=== PATIENT | female | born 1960 | race Caucasian/White ===

== ENCOUNTER → 2017-05-27 16:23 | Outpatient (CLI) | payer BC, SELFPAY | PROVIDERS: Visit Provider Otolaryngology Otolaryngology/Facial Plastic Surgery | DX: J34.89 Other specified disorders of nose and nasal sinuses (principal) | CPT/HCPCS: 87070; 87077; 87186; 87205 ==

== ENCOUNTER → 2020-08-12 13:46 | Outpatient (CLI) | payer BC, SELFPAY ==
[2020-08-12 09:23] VITALS: BMI 33.5
== END ==
PROVIDERS: PCP Internal Medicine; Referring Provider Nurse Practitioner Women's Health; Visit Provider Nurse Practitioner Women's Health
DX: N95.2 Postmenopausal atrophic vaginitis (principal)
CPT/HCPCS: 87070; 87205

== ENCOUNTER → 2022-03-05 | Outpatient (CLI) | payer BC, SELFPAY ==
--- NOTE | 2022-03-05 | BRBX_PTH ---
PATIENT: MILE BRAGA LOC: [facility] U#:[id number] AGE/SX: 61/F ROOM: RE03/05/[address]: Dr. Alvaro An MD : 1960 BED: DIS: 03/05/2022 SPEC #: [id number] RECD: 03/05/22 13:40 STATUS: BUCK REQ #: [id number] EMILY: 03/05/22 00:[address]: Alvaro An DEPT: SURGICAL PATHOLOGY RECD BY: Reza Pope ENTERED: 03/08/22 09:33 SP TYPE: BREAST BX OTHR DR: Dary Casillas MD Tissues: Right breast, NOS Procedures: Surgery Specimen Level IV HEADER OPERATION: Right breast, stereo needle, core biopsy PRE-OP DIAGNOSIS: Micro calcs, right breast upper inner quadrant TISSUE SUBMITTED: Right breast stereo needle, core biopsy MICROSCOPIC DIAGNOSIS Right breast stereo needle, core biopsy: Hyalinized fibroadenoma with focal calcification. Negative for atypia or malignancy. /SJ 03/09/22 COMMENT Correlation with clinical, radiologic findings and appropriate follow up are necessary. MICROSCOPIC DESCRIPTION Slides are reviewed. GROSS DESCRIPTION Received is one container labeled with the patient name and designated right breast. The specimen consists of multiple elongated fragments of choudhary yellow fibroadipose tissue that in aggregate measure 7.5 x 3.0 x 0.3 cm. The specimen is totally submitted in one cassette. / PAUL:zoe 03/08/22 TC:5 CPT: 74401
--- NOTE | 2022-03-05 13:17 | HP.PCM_ITS ---
History and Physical Date of Admission: 03/05/22 HISTORY AND PHYSICAL - BREAST COMPLAINT ? Tiffanie Bond 1960 ? ? REFERRING PHYSICIAN: Viv Pérez APRN.SILVERLIGHT DEVELOPER ? CHIEF COMPLAINT: Mammographic microcalcification found on diagnostic imaging of breast (primary encounter diagnosis) ? HPI: The patient is a 61 year old female with a complaint of an abnormal mammogram. The patient had a mammogram with ultrasound which demonstrated : IMPRESSION: SUSPICIOUS OF MALIGNANCY The heterogeneous calcification in the right breast upper inner aspect posterior depth is suspicious of malignancy. ?A stereotactic biopsy and surgical consult are recommended. The grouped fine heterogeneous calcifications in the left breast upper inner aspect middle depth are probably benign. ?A follow-up diagnostic mammogram in 6 months is recommended. The grouped fine heterogeneous calcifications in the left breast posterior depth upper region seen on the mediolateral oblique view only are probably benign. ?A follow-up diagnostic mammogram in 6 months is recommended. ? ? The patient denies a history of breast masses. She does perform a self breast exam routinely. She notes no skin changes. She denies nipple discharge. She notes no axillary masses. She notes no family history of breast problems. She notes no significant breast trauma or breast difficulties in the past. ? The patient is being seen by me today at the request of Dr. Pérez for my opinion and advice regarding Mammographic microcalcification found on diagnostic imaging of breast (primary encounter diagnosis). ? PAST MEDICAL HISTORY PAST MEDICAL HISTORY Diagnosis Date ? Bladder infection, chronic ? ? DVT (deep venous thrombosis) ([facility]) 09/26/09 ? calf - negative hypercoagulable work up by vascular - off coumadin since 2009 ? Fibroids ? ? Hydrosalpinx ? ? Mammogram abnormal 02/01 ? biopsy, calcium ? Meniere disease ? ? Chronic Hearing Loss/ takes diazepam ? Metrorrhagia ? ? Novasure Ablation in 2006/ ? Obesity ? ? Sebaceous cyst ? ? back ? Type II or unspecified type diabetes mellitus without mention of complication, not stated as uncontrolled ? ? ? PAST SURGICAL HISTORY PAST SURGICAL HISTORY Procedure Laterality Date ? ANAL SPHINTEROTOMY ? 1998 ? damaged during hemorrhoid sx, had it clipped ? HEMORRHOID, RUBBER BAND LIGATION ? 1998 ? LAPS W/VAG HYSTERECT 250 GM/&RMVL TUBE&/OVARIES ? 06/10/2011 ? Single-port laparoscopic-assisted vaginal hysterectomy and cystoscopy ? PAST SURGICAL HISTORY OF ? 2006 ? novasure ablation ? PAST SURGICAL HISTORY OF ? April 2009 ? Scope to Bladder ? PAST SURGICAL HISTORY OF ? ? ? back skin removal- benign ? PAST SURGICAL HISTORY OF ? sigmoidoscopy about ten years ago- normal results ? PAST SURGICAL HISTORY OF ? 06/20/2009 ? Laparoscopic bilateral salpingectomy. ? PAST SURGICAL HISTORY OF ? 02/22/12 ? hernia repair with mesh ? STEREO LOC FOR CORE BRST BX LT ? 02-20-09 ? left ? ? ? CURRENT MEDICATIONS Current Outpatient Medications Medication Sig Dispense Refill ? diazePAM (VALIUM) 2 mg tablet Take 1 tablet by mouth twice daily as needed (vertigo) for up to 30 days. 40 tablet 0 ? metFORMIN (GLUCOPHAGE) 500 mg tablet Take 2 tablets by mouth twice daily with meals. 360 tablet 3 ? spironolactone (ALDACTONE) 25 mg tablet Take 1 tablet by mouth once daily. 90 tablet 3 ? ramipril (ALTACE) 2.5 mg capsule Take 1 capsule by mouth once daily. 90 capsule 3 ? nitrofurantoin (MACRODANTIN) 100 mg capsule Take 1 capsule by mouth once daily. As directed for UTI prevention or treatment 30 capsule 1 ? semaglutide (OZEMPIC) 0.25 mg or 0.5 mg(2 mg/1.5 mL) pen injector Inject 0.5 mg subcutaneously one time a week. 4.5 mL 3 ? glimepiride (AMARYL) 4 mg tablet Take 1 tablet by mouth twice daily with meals. 180 tablet 3 ? blood sugar diagnostic (ONETOUCH VERIO TEST STRIPS) test strip Check 1 to 2 times daily as directed. 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 alcohol swabs Use to prep injection area for Ozempic. 100 Each 5 ? fluconazole (DIFLUCAN) 200 mg tablet Take one then repeat after 3 to 5 days as directed. Treat recurrences as needed 2 tablet 5 ? Biotin 10,000 mcg cap Take 1 capsule by mouth once daily. ? ? ? multivit with minerals/lutein (MULTIVITAMIN 50 PLUS ORAL) Take 1 tablet by mouth once daily. ? ? ? fluticasone propionate (FLONASE ALLERGY RELIEF NASAL) Use 1 Avella in the nose once daily. As needed ? ? ? Flaxseed Oil 1,000 mg cap Take 1,000 mg by mouth once daily. ? ? ? Lancets lancets Test blood sugar(s) 1 times daily. Dx: Type 2 DM - Uncontrolled E11.65 Insulin: No 100 Each 3 ? Blood-Glucose Meter (ONETOUCH VERIO IQ METER) [facility] Check sugars as instructed. DM E11.49, E11.65 1 Each 0 ? estradiol (ESTRACE) 0.01 % (0.1 mg/gram) vaginal cream (Patient not taking: Reported on 02/19/2022) ? ? ? No current facility-administered medications for this visit. ? ? ALLERGIES: Adhesive Tape (Rosins), Bactrim [Sulfamethoxazole-Trimethoprim], Invokana [Canagliflozin], Lipitor [Atorvastatin], Meloxicam, Paroxetine, and Vicodin [Hydrocodone-Acetaminophen] ? PERSONAL HISTORY: SOCIAL HISTORY Social History ? Tobacco Use ? Smoking status: Never ? Smokeless tobacco: Never Vaping Use ? Vaping Use: Never used Substance Use Topics ? Alcohol use: No ? Drug use: No ? FAMILY HISTORY: FAMILY HISTORY FAMILY HISTORY Problem Relation Age of Onset ? Alzheimer's Disease Mother ? ? Cancer Father ? ? MM 62 ? Hypertension Brother ? ? Thyroid Cancer Brother ? ? treated with surgery and radioactive iodine ? Diabetes Maternal Grandfather ? ? Cancer Paternal Grandmother ? ? breast and skin/ lived to be 101 yrs of age ? Breast Cancer Paternal Grandmother ? ? postmenopausal diadnosis ? Melanoma Paternal Grandmother ? ? Breast Cancer Maternal Aunt ? ? in 60s ? other (no history) Other ? ? colon, ovarian ? Diabetes Other ? ? two Aunts on maternal side ? ? REVIEW OF SYMPTOMS: The review of systems data was entered by the nurse and reviewed by me ? There are no exam notes on file for this visit. PHYSICAL EXAMINATION: ? General: The patient is 61 year old female, well nourished, well hydrated in no acute distress. The patient is oriented to time, place, and person. ? VITALS: Blood pressure 118/80, pulse 100, temperature 36.6 ?C (97.9 ?F), height 165.1 cm (5' 5), weight 82.8 kg (182 lb 9.6 oz), last menstrual period 07/27/2006, SpO2 98 %. Body mass index is 30.39 kg/m?. ? HEENT: Normal cephalic, ataumatic, pupils are equally round, sclera are ani cteric, mucous membranes are moist, oropharynx is clear. Neck has no masses, asymmetry or lymphadenopathy. Thyroid is unremarkable. ? Respiratory: Clear to auscultation and percussion. Normal respiratory excursion and pattern. ? Cardiac: Examination is regular rate and rhythm. ? Abdominal exam: Soft, nontender, with no palpable masses. No hepatosplenomegaly. No palpable hernias. ? Rectal exam: exam deferred Extremities: no clubbing, cyanosis or edema. No adenopathy. ? Breast: Visual inspection reveals no retractions, nipple inversion, or skin changes. Palpation of the right breast reveals no dominant or suspicious masses. Palpation of the left breast reveals no dominant or suspicious masses. Axillary exam demonstrates no suspicious masses in either the left or right axilla. There is no nipple discharge expressed from either the left or right breast. ? LABORATORY VALUES: As Noted ? RADIOLOGIC STUDIES: As Noted ? Assessment IMPRESSION: Mammographic microcalcification found on diagnostic imaging of breast (primary encounter diagnosis) ? PLAN: I plan to perform a stereotactic biopsy of the right breast. The planned surgical procedure was discussed extensively with the patient. The risks, benefits, anticipated outcomes and possible complications were mentioned. My staff has also explained the procedure in understandable terms and the patient was given the option to take printed material concerning the planned procedure. The patient had the opportunity to ask questions concerning the planned procedure. The patient freely consents to the planned procedure. ? ? Diagnoses: (R92.0) Mammographic microcalcification found on diagnostic imaging of breast (primary encounter diagnosis) ? My findings have been communicated to Dr. Pérez via shared medical record. This note will be forwarded to Dr. Dary Casillas MD. ? Return to Clinic: The patient is instructed to follow-up with me 1 week post operatively. ? COVID (Procedure Consent) Procedure Criteria ? Procedure Criteria: Yes Elective The surgeon/proceduralist and patient have discussed in detail the risk of exposure to and/or potential harm posed by the COVID-19 virus with having a surgery/procedure at this time versus the risk of? delaying the surgery/procedure. It is not possible to know either the risk of delaying the surgery or procedure or chance of getting an infection with perfect accuracy, but a joint decision was made between the patient and the surgeon/proceduralist ?to proceed at this time with the scheduled surgery/procedure as indicated on the consent form. ? ? Alvaro An III, MD I have examined the patient and the H&P has been reviewed. There are no clinical changes since date of exam.
--- NOTE | 2022-03-05 13:18 | PCM.OPRPT ---
Problems Associated Problem List Diagnoses (1) Microcalcifications of the breast: Report of Operation Date of Procedure: 03/05/22 Pre-Operative Diagnosis: Microcalcifications right breast Post-Operative Diagnosis: Same Surgery/Procedure Performed:: Right stereotactic breast biopsy Surgeon: Alvaro An steam table attendant: None Type of Anesthesia: Local Specimen's removed: Right breast tissue Estimated Blood Loss (mL): < 20 cc Description of Procedure: Patient was brought into the mammography unit. She was placed in the prone position on the fissure table. A medial to lateral view was obtained. Microcalcifications were identified. Posterior -15 degree views were obtained. I targeted on the microcalcifications. I prepped the breast with Betadine. I injected 1% lidocaine plain. A skin delfino was made. Placed a needle in the prefire position took 2 more stereo views. The area was adequately targeted. Fired the needle. 360 degrees circumferential biopsies were obtained. X-ray my specimen. Microcalcifications were identified. Backed the needle off 7 mm. Placed a barbell clip into the biopsy cavity. Needle was removed. Stereo images showed the clip to be in good placement. Patient was taken out of the machine Steri-Strips were applied sterile dressings were applied. Standard mammograms were obtained. Admit VTE Documentation VTE Present on Admission: No VTE Mechan Device Prophylaxis: None VTE Pharm Prophylaxis ordered?: No Reason prophylaxis not ordered:: Treatment Not Indicated
== END | disposition home or self-care (01) ==
LOC: BIRAD 12:46
PROVIDERS: PCP Internal Medicine; Visit Provider Surgery
DX: R92.0 Mammographic microcalcification found on diagnostic imaging of breast (principal)
CPT/HCPCS: 19081; 88305; J7050

== ENCOUNTER 2023-03-16 08:30 | Outpatient (RCR) | payer BC, SELFPAY ==
--- NOTE | 2023-01-20 12:41 | HP.PTEVAL ---
Patient's Visit Information Visit Information Visit Information: MILE BRAGA is a 62 year old F referred to Physical Therapy by Dr. Selma Hays MD with a diagnosis of OVER ACTIVE BLADDER. Date of Evaluation: 01/19/23 Physical Therapist: Kenisha Flor, PT, Cert MDT Visit Plan Frequency: 1x/Week Duration: 2-4 Months Plan: CHECK AUTH PF THERAPY FOR STRENGTHENING AND ENDURANCE TRAINING. URINARY URGE AND FREQUENCY EDUCATION. HEALTHY BLADDER HABIT EDUCATION. TRAINING IN COORDINATION OF PELVIC FLOOR MUSCULATURE WITH HIP AND CORE (TRANSVERSE ABDOMINUS) MUSCULATURE. CORE STRENGTHENING. FARHAN LE ROM, STRETCHING AND STRENGTHENING. TRAINING IN ABDOMINAL CAVITY PRESSURE MGMT WITH ADL'S. Subjective Subjective: Work/Leisure: HOUSEWIFE. WALKING AND GARDENING. NO PREGNANCIES. Disability: NO Present symptoms: IT FEELS LIKE I HAVE TO URINATE ALL THE TIME . WHEN I STAND UP IT FEELS LIKE MY INSIDES ARE GOING TO FALL OUT . Present since: ABOUT 6 MONTHS Pain Scale: PATIENT DENIES PAIN. Is it getting better, worse or staying the same: STAYING THE SAME Commenced as a result of: NO APPARENT REASON Symptoms at onset: SAW A BULGE IN VAGINAL AREA Worse: STANDING UP, HAVING BOWEL MVMT, LIFTING Better: LYING DOWN Disturbed sleep: GETTING UP ONCE AT NIGHT TO URINATE Previous history/Previous treatment: HYSTERECTOMY >8 YEARS AGO, TUBAL . NO H/O PELVIC FLOOR THERAPY. NO BLADDER SLING SX. DX'D WITH CYSTITIS ABOUT YEAR AGO. HAS BEEN TRYING PELVIC FLOOR EX'S ON HER OWN FOR ABOUT 6 WKS THAT SHE LEARNED FROM HER [id number]. Treatment this episode: NONE. PT REFERRAL. Coughing/sneezing/straining: SLIGHTLY Gait: NORMAL How long can you delay the need to urinate: 6-7 MINUTES Prolapse (Falling out feeling): YES Frequency of Urination: APPROX EVERY 2 HRS Ability to stop urine flow: YES Ability to initiate urine stream: YES Dyspareunia: MILD Bowel Incontinence: NO Accidents: NO Unexplained weight loss: NO Imaging: TESTING SHOWING NORMAL BLADDER EMPTYING PER PATIENT REPORT. OTHER: PATIENT IS HARD OF HEARING AND WEARS HEARING AIDS. PMH FROM [facility] EMR: H/O blood clots Meniere disease Type 2 diabetes mellitus H/O breast biopsy H/O laparoscopy History of knee replacement - R History of total vaginal hysterectomy Objective Objective: Sitting/Standing Posture: FAIR. REDUCED LUMBAR LORDOSIS. NO RELEVANT LATERAL SHIFT. Other Observations: INDEP GAIT AND TRANSFERS Sensory deficit: FARHAN LE LIGHT TOUCH SENSATION GROSSLY INTACT AND SYMMETRICAL ROM deficit: FARHAN HS, HIP ADDUCTOR, HIP ER AND GASTROC-SOLEUS TIGHTNESS. Motor deficit: FARHAN LE'S GROSSLY 5/5 WITH MMT'ING EXCEPT HIPS 4/5 Dural Signs: NEGATIVE FARHAN LES'. Lumbar mvmt loss: flex - NIL ext - FANNY R SG - MOD L SG - MOD PATIENT DENIES PAIN WITH LUMBAR ROM TESTING. Core strength: POOR Palpation: MANUAL INTERNAL VAGINAL TESTING OF PELVIC FLOOR REVEALS POOR STRENGTH GRADED 2/5 X 2 SEC X 2, NO TRIGGER POINTS AND NO TENDERNESS. FUNCTIONAL SCREEN: Incontinence Impact Questionnaire Score: 3 Urogenital Distress Inventory Score: 3 Goals Goal 1:: PATIENT WILL SUCCESSFULLY DELAY VOIDING LONG NEEDED WHEN URGENCY OCCURS TO SUCCESSFULLY MAKE IT TO THE BATHROOM. Goal Time Frame: 8-12 Weeks Goal 2:: PATIENT WILL DEMONSTRATE/COMMUNICATE 10 CONSISTENT AND CONSECUTIVE 10 SECOND PELVIC FLOOR MUSCLE CONTRACTIONS TO DEMONSTRATE IMPROVED PELVIC FLOOR ENDURANCE. Goal Time Frame: 8-12 Weeks Goal 3:: DEVELOP HEALTHY FLUID INTAKE HABITS WITH FLUID INTAKE OF ? BODY WEIGHT IN OUNCES PER DAY AND 2/3 BEING WATER. Goal Time Frame: 2-4 Weeks Goal 4:: NORMALIZE VOIDING FREQUENCEY TO EVERY 3-4 HOURS. Goal Time Frame: 4-6 Weeks Goal 5:: PATIENT WILL BE INDEP WITH A HEP/HOME INSTRUCTIONS FOR CONTINUED IMPROVEMENT ONCE FORMAL PHYSICAL THERAPY CONCLUDES. Goal Time Frame: 8-12 Weeks Anticipated Interventions Patient/Client Instruction: Educate patient on: Condition, Plan of Care and Risk Factors For the Purpose of:: To improve self management Therapeutic Exercise to Include: Strength training, Endurance training, Flexibilty training and Neuromotor development For the Purpose of:: To improve muscle performance and motor function, To increase tolerance to activity/condition/position and To improve ability of physical actions for home/community/work/leisure Text: Thank you for the opportunity to evaluate your patient. For Medicare and Medicare HMO plans, please review the plan of care and approve it. It will need to be FAXED BACK to us at [phone] for Medicare purposes. For Medicare only, by signing this I certify the plan of care. Please let me know if there are questions or concerns regarding this plan of care. Physician Signature: Date:
== END 2023-03-16 19:00 | disposition home or self-care (01) ==
LOC: PT 08:30
PROVIDERS: PCP Internal Medicine; Referring Provider Urology; Visit Provider Urology
DX: N32.81 Overactive bladder (principal)
CPT/HCPCS: 97162; 97530